=== PATIENT | male | born 1970 | race Caucasian/White ===

== ENCOUNTER 2016-11-02 09:55 | Emergency (ER) | payer OTHER ==
[~2016-11-02] VITALS: Ht 180.3 cm; Wt 69.9 kg
[~2016-11-02 09:55] MED LIST: PERC5TAB12 PO
[2016-11-02 10:11] VITALS: BP 120/92; PULSE 82; RESP 16; TEMP 99.2; O2SAT 98
--- NOTE | 2016-11-02 10:34 | PD ---
HPI Chief Complaint: Wound/Suture/Staple Re-Check Time Seen by Provider: 10:26 Travel History International Travel<30 days: No Contact w/Intl Traveler<30days: No Traveled to known affect area: No History of Present Illness HPI This 46-year-old male presents with request for suture removal. He had sutures placed in a self-inflicted laceration of the left wrist on the . He subsequently broke his wrist on October 25 and now has a splint on the left forearm. He has a Colles' fracture. He has a history of posttraumatic stress disorder but says that he is now well-controlled PFSH Past Medical History Hx Anticoagulant Therapy: No Anxiety: Yes Depression: Yes Diminished Hearing: No Musculoskeletal: Yes (rods and screws in back) Psychiatric: Yes (anxiety, PTSD, depression) Past Surgical History Tonsillectomy: Yes Social History Alcohol Use: Yes (1 BEER A WEEK) Tobacco Use: Yes (1 PACK A DAY X 15 YRS) Substance Use: Yes Allergies-Medications (Allergen,Severity, Reaction): Coded Allergies: No Known Allergies (Verified , 11/02/16) Reported Meds & Prescriptions Reported Meds & Active Scripts Active Percocet (Oxycodone-Acetaminophen) 5-325 mg Tab 1 Tab PO Q6H PRN Review of Systems General / Constitutional: No: Fever, Chills Cardiovascular: No: Chest Pain or Discomfort Respiratory: No: Shortness of Breath Physical Exam Narrative There is a laceration of the left forearm which is well-healed. His splint had to be removed to reveal this laceration. Sutures will be removed and the splint reapplied Data Data Last Documented VS Vital Signs Date Time Temp Pulse Resp B/P Pulse Ox O2 Delivery O2 Flow Rate FiO2 11/02/16 10:11 99.2 82 16 120/92 98 MDM Medical Decision Making Medical Screen Exam Complete: Yes Emergency Medical Condition: Yes Medical Record Reviewed: Yes Differential Diagnosis Healing laceration, wound infection Narrative Course Patient is healing without any evidence of infection. Sutures removed Diagnosis Primary Impression: healing laceration of forearm Disposition: 01 DISCHARGE HOME Condition: Stable Roberto Ovalles MD Nov 02, 2016 10:34
== END 2016-11-02 11:18 | disposition home or self-care (01) ==
LOC: PHED 09:55
DX: Z48.02 Encounter for removal of sutures (principal); S51.812D Laceration without foreign body of left forearm, subsequent encounter; S52.532D Colles' fracture of left radius, subsequent encounter for closed fracture with routine healing; X78.9XXD Intentional self-harm by unspecified sharp object, subsequent encounter; F17.210 Nicotine dependence, cigarettes, uncomplicated
CPT/HCPCS: 29125